=== PATIENT | male | born 1995 | race Hispanic/Latino ===

== ENCOUNTER 2023-06-24 12:35 | Emergency (ER) | payer OTHER ==
[~2023-06-24] VITALS: Ht 172.7 cm; Wt 59.0 kg
[2023-06-24 13:55] LABS: RAPID GROUP A STREP negative (NEGATIVE)
[2023-06-24 13:59] LABS: SARS-CoV-2, RNA, NAAT NEGATIVE SARS CoV-2 (NEGATIVE)
[2023-06-24 14:04] LABS: INFLUENZA TYPE A Negative For Type A (NEGATIVE); INFLUENZA TYPE B Negative For Type B (NEGATIVE)
[2023-06-24] MEDS ORDERED: IBUP-2070 PO (15:18)
[2023-06-24] MEDS ORDERED: ACETAMINOPHEN 500 MG TABLET PO ONE (15:30)
[2023-06-24] MEDS ORDERED: METOCLOPRAMIDE 10 MG/2 ML VIAL IM ONE (15:30)
[2023-06-24 15:32] VITALS: BP 175/82; PULSE 89; RESP 18; O2SAT 95
== END 2023-06-24 15:39 | disposition home or self-care (01) ==
LOC: EDH 12:35
DX: R51.9 Headache, unspecified (principal); R05.9 Cough, unspecified; R53.1 Weakness; Z20.822 Contact with and (suspected) exposure to COVID-19
CPT/HCPCS: 99284; 70450; 87635; 87880; 87804 ×2; C9803